=== PATIENT | female | born 1965 | race Caucasian/White ===

== ENCOUNTER 2017-11-07 22:46 | Emergency (ER) | payer SELFPAY ==
[~2017-11-07] VITALS: Ht 172.7 cm; Wt 68.0 kg
[2017-11-07 22:57] VITALS: BP 123/81
== END 2017-11-07 23:22 | disposition home or self-care (01) ==
LOC: ER 22:50
DX: J06.9 Acute upper respiratory infection, unspecified (principal)
CPT/HCPCS: A4606; Z7502; Z7610

== ENCOUNTER 2018-01-10 20:03 | Emergency (ER) | payer OTHER ==
[~2018-01-10] VITALS: Ht 170.2 cm; Wt 68.0 kg
--- NOTE | 2018-01-10 21:28 | NUR ---
PATIENT TO ED DT "LT FACIAL SWELLING SINCE YESTERDAY; STARTED A PIMPLE, GETTING WORSE. PATIENT IS AFEBRILE. VSS
[2018-01-10] MEDS ORDERED: IBUPROFEN 600 MG TABLET PO ONE (22:05)
[2018-01-10] MEDS: IBUPROFEN 600 MG TABLET PO ONE (22:08)
[2018-01-10 22:09] VITALS: BP 124/80
== END 2018-01-10 22:09 | disposition home or self-care (01) ==
LOC: ER 20:07
DX: L02.01 Cutaneous abscess of face (principal)
CPT/HCPCS: A4606; Z7610

== ENCOUNTER 2018-11-19 14:05 | Inpatient (IN) | payer OTHER ==
[~2018-11-19] VITALS: Ht 170.2 cm; Wt 77.6 kg
--- NOTE | 2018-11-19 14:05 | NUR ---
BIBRA [id number] from restaurant c/o left side body pain (hip, leg, shoulder arm) and mid lower back s/p slipped and fell, -ko, TO ER BED 3, HOOKED TO MONITOR, CHANGED TO GOWN, AWAITING MD CALDERA
--- NOTE | 2018-11-19 14:55 | NUR ---
DR VALDIVIA AT BEDSIDE FOR EVAL.
[2018-11-19] MEDS ORDERED: MORPHINE SULFATE INJ 4 MG/ML DISP.SYRIN ONE (15:23)
[2018-11-19] MEDS ORDERED: ONDANSETRON 4 MG TAB.RAPDIS ONE (15:23)
[2018-11-19] MEDS ORDERED: MORPHINE SULFATE INJ 2 MG/ML DISP.SYRIN IM ONE (15:30)
[2018-11-19] MEDS ORDERED: ONDANSETRON 4 MG TAB.RAPDIS SL ONE (15:30)
--- NOTE | 2018-11-19 17:06 | NUR ---
PT IN BED AWAKE,VSS, HOOKED TO MONITOR, WILL CONTINUE TO MOITOR
[2018-11-19 18:08] LABS: BASOPHILS % (AUTO) 0.5 % (0.0-2.0); EOSINOPHILS % (AUTO) 0.5 % (0.0-6.0); HEMATOCRIT 37 % (33-45); HEMOGLOBIN 12.3 g/dL (11.5-14.8); LYMPHOCYTES # (AUTO) 1.8 /CMM (0.8-4.8); LYMPHOCYTES % (AUTO) 30.8 % (20.0-44.0); MEAN CORPUSCULAR HGB CONC 33 g/dl (31.0-36.0); MEAN CORPUSCULAR VOLUME 88 fL (82-100); MONOCYTES # (AUTO) 0.3 /CMM (0.1-1.30); MONOCYTES % (AUTO) 4.8 % (2.0-12.0); NEUTROPHILS # (AUTO) 3.7 /CMM (1.8-8.9); NEUTROPHILS % (AUTO) 63.4 % (43.0-81.0); PLATELET COUNT (AUTO) 221 /CMM (150-450); RED BLOOD CELL COUNT(AUTO) 4.22 MIL/uL (4.0-5.2); WHITE BLOOD COUNT (AUTO) 5.9 K/uL (4.3-11.0)
[2018-11-19 18:16] LABS: CALCIUM, SERUM 9.1 mg/dL (8.5-10.1); CREATININE 0.8 mg/dL (0.6-1.3); POTASSIUM 3.4 mmol/L (3.5-5.1)
[2018-11-19 18:22] LABS: ALBUMIN 3.8 g/dL (3.4-5.0); BILIRUBIN,DIRECT 0.1 mg/dL (0.0-0.2); BILIRUBIN,TOTAL 0.4 mg/dL (0.2-1.0); TOTAL PROTEIN, SERUM 7.3 g/dL (6.4-8.2)
--- NOTE | 2018-11-19 19:06 | NUR ---
PT IN BED AWAKE,VSS, HOOKED TO MONITOR, WILL CONTINUE TO MONITOR
--- NOTE | 2018-11-19 19:25 | NUR ---
Elizabeth drake in ED - 11/19/18 at 1927 by BRAN Patient discharged to home in stable condition. Written and verbal after care instructions given. Patient verbalizes understanding of instruction.
--- NOTE | 2018-11-19 19:25 | NUR ---
Note noelle in EDM - 11/19/18 at 1927 by BRAN IV removed. Catheter intact and site benign. Pressure and 4x4 applied to site. No bleeding noted.
--- NOTE | 2018-11-19 19:35 | NUR ---
REPORT GIVEN TO KIM VELASCO FOR NOAH
--- NOTE | 2018-11-19 20:00 | NUR ---
[facility] PAGED
--- NOTE | 2018-11-19 20:03 | NUR ---
AFTER HOURS CALL [phone] ITS FERMÍN BAGLEY
[2018-11-19] MEDS ORDERED: KETOROLAC TROMETHAMINE INJ 30 MG/ML VIAL IV ONE (20:30)
--- NOTE | 2018-11-19 20:50 | NUR ---
REPORT GIVEN TO LOGAN VELASCO.
[2018-11-19] MEDS ORDERED: KETOROLAC TROMETHAMINE INJ 30 MG/ML VIAL ONE (20:51)
[2018-11-19 21:30] VITALS: BP 126/73
--- NOTE | 2018-11-19 21:30 | NUR ---
RECEIVED PATIENT FROM ER FOR DX MECHANICAL FALL/ INABILITY TO WALK. AO X 3, ABLE TO MAKE NEEDS KNOWN. NO ACUTE DISTRESS NOTED. MONITORED FOR PAIN. SKIN ASSESSMENT DONE. IV SITE PATENT, INTACT; FLUSHED. SAFETY REMINDERS GIVEN. ON LOW BED WITH BILATERAL UPPER SIDE RAILS UP. CALL CARVAJAL WITHIN EASY REACH. FRIEND AT BEDSIDE. WILL CONTINUE TO MONITOR.
[2018-11-19] MEDS ORDERED: IV NS 0.9% 1,000 ML IV PRN (21:47)
[2018-11-19 22:00] VITALS: BP 126/73
[2018-11-19] MEDS ORDERED: ACETAMINOPHEN 325 MG TABLET PO PRN (22:00)
[2018-11-19] MEDS ORDERED: ONDANSETRON HCL/PF 4 MG/2 ML VIAL IVP PRN (22:00)
[2018-11-19] MEDS ORDERED: MAG HYDROX/AL HYDROX/SIMETH 30 ML UDC PO PRN (22:00)
[2018-11-19] MEDS ORDERED: HYDROCODONE/APAP 5/325MG 1 EACH TABLET PO PRN (22:00)
[2018-11-19] MEDS ORDERED: HYDROCODONE/APAP 10/325MG 1 EA TABLET PO PRN (22:00)
[2018-11-19] MEDS ORDERED: Z GUARD REMEDY 2 OZ OINT TP PRN (22:00)
[2018-11-19] MEDS ORDERED: MAGNESIUM HYDROXIDE 30 ML UDC PO PRN (22:00)
[2018-11-19] MEDS ORDERED: ENOXAPARIN SODIUM 40 MG/0.4 ML DISP.SYRIN SQ ONE (23:30)
--- NOTE | 2018-11-20 06:00 | NUR ---
PATIENT ASLEEP, EASILY AROUSABLE. RESPIRATIONS EVEN. NO SIGNS OF PAIN NOTED. IVF INFUSING ORDERED. NEEDS ATTENDED. SAFETY PRECAUTIONS AND COMFORT MEASURES IN PLACE. WILL GIVE REPORT TO DAY SHIFT FOR CONTINUITY OF CARE.
[2018-11-20 06:31] LABS: BASOPHILS % (AUTO) 0.4 % (0.0-2.0); EOSINOPHILS % (AUTO) 1.7 % (0.0-6.0); HEMATOCRIT 36 % (33-45); HEMOGLOBIN 11.9 g/dL (11.5-14.8); LYMPHOCYTES % (AUTO) 38.8 % (20.0-44.0); MEAN CORPUSCULAR HGB CONC 33 g/dl (31.0-36.0); MEAN CORPUSCULAR VOLUME 88 fL (82-100); MONOCYTES # (AUTO) 0.3 /CMM (0.1-1.30); MONOCYTES % (AUTO) 6.8 % (2.0-12.0); NEUTROPHILS # (AUTO) 2.7 /CMM (1.8-8.9); NEUTROPHILS % (AUTO) 52.3 % (43.0-81.0); PLATELET COUNT (AUTO) 220 /CMM (150-450); RED BLOOD CELL COUNT(AUTO) 4.07 MIL/uL (4.0-5.2); WHITE BLOOD COUNT (AUTO) 5.1 K/uL (4.3-11.0)
[2018-11-20 06:45] LABS: CALCIUM, SERUM 8.8 mg/dL (8.5-10.1); CREATININE 0.9 mg/dL (0.6-1.3); MAGNESIUM 2.2 mg/dL (1.8-2.4); PHOSPHORUS 6.4 mg/dL (2.5-4.9); POTASSIUM 4.2 mmol/L (3.5-5.1)
[2018-11-20 06:50] LABS: THYROID STIMULATING HORMONE 3.006 uIU/mL (0.358-3.74)
[2018-11-20] MEDS ORDERED: PANTOPRAZOLE 40 MG TABLET.DR PO SCH (07:30)
[2018-11-20 08:00] VITALS: BP 95/59
--- NOTE | 2018-11-20 08:00 | NUR ---
m/s refractory technician: initial assessment received pt in bed awake, a/xo4. pt somewhat anxious on discomfort to body including breast pain, but pt refused pain med when offered. instructed to call for assistance. will monitor.
--- NOTE | 2018-11-20 11:00 | NUR ---
m/s real estate consultant: md visit seen and examined by dr. juarez. also made aware re: ortho P.A. recommendation for toradol 15mg ivp q8hrx3 doses only[address] juarez aware that pt refusing medications when offered. received verbal orders for xanax 0.5mg po q12 hours and toradol 15mg ivp [id number]. orders read back and carried out and acknowledged. pt may refused these meds, but still offer the meds per md. pt made aware, but will not take meds, but meds are available if needed. medications teaching provided prn. instructed to call for assistance. will monitor.
[2018-11-20] MEDS ORDERED: ALPRAZOLAM 0.25 MG TABLET PO SCH (11:30)
--- NOTE | 2018-11-20 12:00 | NUR ---
m/s unloading checker: notes offered xanax medication, but pt still refuses, stated, "i don't need medication." instructed to call for assistance. will continue to monitor.
[2018-11-20 12:38] LABS: APPEARANCE,URINE TURBID (CLEAR); BILIRUBIN,URINE 1+ (NEGATIVE); BLOOD, URINE NEGATIVE Ery/uL (NEGATIVE); KETONES,URINE TRACE (NEGATIVE); LEUKOCYTE ESTERASE ,URINE NEGATIVE (NEGATIVE); NITRITE, URINE NEGATIVE (NEGATIVE); PH,URINE 5.5 (5.0-8.0); PROTEIN,URINE TRACE mg/dl (NEGATIVE); UGLUCOSE NEGATIVE (NEGATIVE); UROBILINOGEN,URINE 0.2 EU/dL (0.2)
[2018-11-20 12:39] LABS: COLOR,URINE DARK YELLOW (YELLOW)
[2018-11-20 12:42] LABS: BACTERIA,URINE Few /HPF (None Seen); MUCUS,URINE Few /LPF (None Seen); RBC,URINE 0-2 /HPF (0-2); SQUAMOUS EPITHELIAL CELL,UR Rare /HPF (None Seen); WBC,URINE 0-2 /HPF (0-3)
[2018-11-20 12:43] LABS: URINE AMORPHOUS URATE Many /HPF (None Seen)
[2018-11-20] MEDS ORDERED: KETOROLAC TROMETHAMINE INJ 30 MG/ML VIAL IV SCH (13:00)
--- NOTE | 2018-11-20 13:00 | NUR ---
m/s solar systems designer: notes pt refused toradol despite educated on medication.
--- NOTE | 2018-11-20 14:00 | NUR ---
m/s assistant chief engineer: notes pt verbalizing wanting to go home and still refuses pain medication when offered.
--- NOTE | 2018-11-20 15:00 | NUR ---
m/s industrial robotics mechanic: notes friend came up to the nurses station and wants pt to get discharge, stated, "we have an appointment at [facility] today and would like her get discharge." also spoke to pt and wants to f/u with her doctor at [place]. dr. juarez notified and made aware and will discharge her today. pt made aware. h/l removed with tip intact. pt wants a walker to take home with physical therapist recommendation for home dme. central supply notified.
--- NOTE | 2018-11-20 15:20 | NUR ---
m/s deliverer pharmacy: notes discharged instructions given to pt and verbalized understanding. pt stated, "i will f/u with my own doctor today at [facility]."
--- NOTE | 2018-11-20 15:35 | NUR ---
m/s scroll machine operator: discharged discharged home via private car accompanied by friend with all d'c papers and valuables.
[2018-11-20] MEDS ORDERED: ENOXAPARIN SODIUM 40 MG/0.4 ML DISP.SYRIN SQ SCH (21:00)
== END 2018-11-20 15:45 | disposition home or self-care (01) | DRG 384 ==
LOC: ER 14:07 → MED 20:39
PROVIDERS: ADMIT Registered Nurse; ATTEND Internal Medicine
DX: S70.02XA Contusion of left hip, initial encounter (principal); S09.90XA Unspecified injury of head, initial encounter; J98.4 Other disorders of lung; E66.9 Obesity, unspecified; M75.32 Calcific tendinitis of left shoulder; W01.0XXA Fall on same level from slipping, tripping and stumbling without subsequent striking against object, initial encounter; Y92.511 Restaurant or cafe as the place of occurrence of the external cause; Z68.26 Body mass index [BMI] 26.0-26.9, adult; F41.9 Anxiety disorder, unspecified; T14.8XXA Other injury of unspecified body region, initial encounter; R26.2 Difficulty in walking, not elsewhere classified; S29.9XXA Unspecified injury of thorax, initial encounter
CPT/HCPCS: 36415; 70450-TC; 71046; 72125-TC; 73030-TC; 80048-TC; 80061-TC; 80076-TC; 81000-TC; 83735-TC; 84100-TC; 84443-TC; 85025-TC; 85730-TC; 87081-TC; G0378; J1885; J2270; J7030; L0172; Q0162

== ENCOUNTER 2020-05-01 01:19 | Emergency (ER) | payer OTHER ==
[~2020-05-01] VITALS: Ht 172.7 cm; Wt 74.8 kg
[2020-05-01 01:19] VITALS: BP 125/83
--- NOTE | 2020-05-01 01:50 | NUR ---
Patient discharged to home in stable condition. Written and verbal after care instructions given. Patient verbalizes understanding of instruction.
== END 2020-05-01 02:02 | disposition home or self-care (01) ==
LOC: ER 01:22
DX: R45.4 Irritability and anger (principal); R42 Dizziness and giddiness; R11.0 Nausea; I10 Essential (primary) hypertension

== ENCOUNTER 2021-05-14 23:38 | Emergency (ER) | payer OTHER ==
[~2021-05-14] VITALS: Ht 170.2 cm; Wt 78.5 kg
--- NOTE | 2021-05-15 01:15 | NUR ---
PRESENTED TO THE ER FOR C.O R KNEE PAIN AND SWELLING . - REDNESS. DENIED ANY TRAUMA OR INJURY. ASSISTED TO BED 9 ER, VSS. WILL CONT TO MONITOR
[2021-05-15] MEDS ORDERED: IBUP-1957 PO (02:19)
--- NOTE | 2021-05-15 02:35 | NUR ---
Patient discharged to home in stable condition. Rx and Written and verbal after care instructions given. Patient verbalizes understanding of instruction.
[2021-05-15 02:43] VITALS: BP 129/77
== END 2021-05-15 02:43 | disposition home or self-care (01) ==
LOC: ER 23:45
DX: M25.461 Effusion, right knee (principal); M25.561 Pain in right knee; Z79.899 Other long term (current) drug therapy
CPT/HCPCS: 73564-TC; 93971-TC

== ENCOUNTER 2022-03-06 18:32 | Emergency (ER) | payer OTHER ==
[~2022-03-06] VITALS: Ht 172.7 cm; Wt 77.1 kg
[~2022-03-06 18:32] MED LIST: IBUP-1957 PO
--- NOTE | 2022-03-06 18:52 | NUR ---
URINE COLLECTED AND SENT TO LAB
--- NOTE | 2022-03-06 19:25 | NUR ---
RECEIVED PATIENT AWAKE, AAOX4. ON THE PHONE TALKING. PATIENT VITALS CHECKED. WILL FF MD'S ORDER
--- NOTE | 2022-03-06 19:30 | NUR ---
COVID SWAB, PCR AND INFLUENZA SWAB DONE AND SENT TO LAB
[2022-03-06] MEDS ORDERED: ACETAMINOPHEN ES 500 MG TABLET ONE (19:40)
[2022-03-06] MEDS: ACETAMINOPHEN 325 MG TABLET PO ONE (19:47)
--- NOTE | 2022-03-06 19:48 | NUR ---
MEDS FOR FEVER GIVEN
[2022-03-06 19:53] LABS: BILIRUBIN,URINE NEGATIVE (NEGATIVE); COLOR,URINE YELLOW (YELLOW); LEUKOCYTE ESTERASE ,URINE NEGATIVE (NEGATIVE); NITRITE, URINE NEGATIVE (NEGATIVE); PH,URINE 7.5 (5.0-8.0); PROTEIN,URINE NEGATIVE (NEGATIVE); UGLUCOSE NEGATIVE (NEGATIVE); UROBILINOGEN,URINE 0.2 EU/dL (0.2)
[2022-03-06 20:08] LABS: CALCIUM, SERUM 8.8 mg/dL (8.5-10.1); CREATININE 0.9 mg/dL (0.6-1.3); POTASSIUM 3.8 mmol/L (3.5-5.1)
[2022-03-06 20:27] LABS: BACTERIA,URINE Few /HPF (None Seen); MUCUS,URINE Moderate /LPF (None Seen); SQUAMOUS EPITHELIAL CELL,UR Few /HPF (None Seen); WBC,URINE 0-2 /HPF (0-3)
--- NOTE | 2022-03-06 20:39 | NUR ---
RECEIVED A CALL FROM LAB, PT IS (+) FOR COVID.
[2022-03-06 20:42] LABS: BASOPHILS % (AUTO) 0.2 % (0.0-2.0); EOSINOPHILS % (AUTO) 0.2 % (0.0-6.0); HEMATOCRIT 34 % (33-45); HEMOGLOBIN 11.3 g/dL (11.5-14.8); LYMPHOCYTES # (AUTO) 0.5 K/uL (0.8-4.8); MEAN CORPUSCULAR HGB CONC 34 g/dl (31.0-36.0); MEAN CORPUSCULAR VOLUME 84 fL (82-100); MONOCYTES # (AUTO) 0.4 K/uL (0.1-1.30); MONOCYTES % (AUTO) 7.5 % (2.0-12.0); NEUTROPHILS # (AUTO) 4.4 K/uL (1.8-8.9); NEUTROPHILS % (AUTO) 83.1 % (43.0-81.0); PLATELET COUNT (AUTO) 180 K/uL (150-450); RED BLOOD CELL COUNT(AUTO) 4.03 MIL/uL (4.0-5.2); WHITE BLOOD COUNT (AUTO) 5.3 K/uL (4.3-11.0)
--- NOTE | 2022-03-06 21:20 | NUR ---
Patient discharged to home in stable condition. Written and verbal after care instructions given. Patient verbalizes understanding of instruction.
[2022-03-06 21:23] VITALS: BP 113/65
== END 2022-03-06 21:23 | disposition home or self-care (01) ==
LOC: ER 18:36
DX: U07.1 COVID-19 (principal)
CPT/HCPCS: 36415; 71045; 80048; 81001; 85025; 87426; 87804; 99284; C9803 ×2; U0003

== ENCOUNTER 2022-04-15 11:28 | Emergency (ER) | payer OTHER ==
[~2022-04-15] VITALS: Ht 170.2 cm; Wt 77.1 kg
--- NOTE | 2022-04-15 11:45 | NUR ---
RECIVED PT 57 YRS FEMALE C/O LACERATION ON RT HAND CUT BY BROKEN GLASSE OPEN SKIN WITH MILD ACTIVE BLEEDING
[2022-04-15] MEDS ORDERED: TDAP [DIPH/PERTUSSIS/TET] 0.5 ML VIAL IM ONE ×2 (12:00→12:02)
[2022-04-15] MEDS ORDERED: BACI/NEOM/POLY B OINT PKT 1 UDPKT PACKET TP ONE (12:00)
[2022-04-15] MEDS ORDERED: LIDOCAINE 1%-EPI 1:100,000 50 ML VIAL IJ ONE (12:00)
--- NOTE | 2022-04-15 12:00 | NUR ---
CLEAN AND IRREGATED WOUND DONE BY EDT
[2022-04-15] MEDS ORDERED: BACI/NEOM/POLY B OINT PKT 1 UDPKT PACKET ONE (12:02)
[2022-04-15] MEDS ORDERED: LIDOCAINE 1%-EPI 1:100,000 20 ML VIAL ONE (12:02)
[2022-04-15] MEDS ORDERED: ACETAMINOPHEN 325 MG TABLET PO ONE (12:30)
[2022-04-15] MEDS ORDERED: ACETAMINOPHEN 325 MG TABLET ONE (12:37)
--- NOTE | 2022-04-15 13:40 | NUR ---
SUTURE DONE AT BED SIDE BY DR. JORGENSEN
--- NOTE | 2022-04-15 14:30 | NUR ---
dressing appled on rt hand
[2022-04-15] MEDS ORDERED: IBUP-1955 PO (14:39)
--- NOTE | 2022-04-15 14:43 | NUR ---
D/C INSTRACTION GIVEN TO PT FULLY AND VERBLIZED UNDERSTOOD D/C HOME WITH RX
[2022-04-15 14:45] VITALS: BP 118/69
== END 2022-04-15 14:48 | disposition home or self-care (01) ==
LOC: ER 11:31
DX: S61.412A Laceration without foreign body of left hand, initial encounter (principal); W25.XXXA Contact with sharp glass, initial encounter; Y93.G1 Activity, food preparation and clean up; Y92.89 Other specified places as the place of occurrence of the external cause; Y99.8 Other external cause status
CPT/HCPCS: 99285; 12002; 90471; 90715; J3490 ×2

== ENCOUNTER 2023-02-06 12:47 | Emergency (ER) | payer OTHER ==
[~2023-02-06] VITALS: Ht 170.2 cm; Wt 77.1 kg
[~2023-02-06 12:47] MED LIST changes: +IBUP-1955 PO
[2023-02-06] MEDS ORDERED: IBUP-1955 PO (12:58)
[2023-02-06] MEDS ORDERED: AMOX-430 PO (12:58)
--- NOTE | 2023-02-06 13:17 | NUR ---
strep swab collected and sent to lab
[2023-02-06] MEDS ORDERED: DEXAMETHASONE SOD PHOSPHATE 10 MG/ML VIAL ONE (13:24)
[2023-02-06] MEDS ORDERED: KETOROLAC TROMETHAMINE 15 MG/ML VIAL ONE (13:24)
[2023-02-06] MEDS ORDERED: KETOROLAC TROMETHAMINE INJ 30 MG/ML VIAL IM ONE (13:30)
[2023-02-06] MEDS ORDERED: DEXAMETHASONE SOD PHOSPHATE 10 MG/ML VIAL IM ONE (13:30)
[2023-02-06 14:13] VITALS: BP 100/61
== END 2023-02-06 14:13 | disposition home or self-care (01) ==
LOC: ER 12:49
DX: J02.9 Acute pharyngitis, unspecified (principal); Z79.899 Other long term (current) drug therapy
CPT/HCPCS: 99284; 96372 ×2; 87880; J1100; J1885; 86403-TC

== ENCOUNTER 2023-05-26 08:43 | Emergency (ER) | payer OTHER ==
[~2023-05-26] VITALS: Ht 167.6 cm; Wt 77.1 kg
[~2023-05-26 08:43] MED LIST changes: +AMOX-430 PO
[2023-05-26 08:55] VITALS: BP 111/59; TEMP 98.6; O2SAT 100
[2023-05-26 09:11] LABS: ADD URINE CULTURE YES; APPEARANCE,URINE CLEAR (CLEAR); BACTERIA,URINE Rare /HPF (None Seen); BILIRUBIN,URINE NEGATIVE (NEGATIVE); BLOOD, URINE 2+ Ery/uL (NEGATIVE); COLOR,URINE YELLOW (YELLOW); KETONES,URINE NEGATIVE (NEGATIVE); LEUKOCYTE ESTERASE ,URINE 1+ (NEGATIVE); NITRITE, URINE NEGATIVE (NEGATIVE); PH,URINE 5.5 (5.0-8.0); PROTEIN,URINE NEGATIVE (NEGATIVE); SQUAMOUS EPITHELIAL CELL,UR Rare /HPF (None Seen); UGLUCOSE NEGATIVE (NEGATIVE); UROBILINOGEN,URINE 0.2 EU/dL (0.2)
== END 2023-05-26 11:59 | disposition home or self-care (01) ==
LOC: ER 08:51
DX: N89.8 Other specified noninflammatory disorders of vagina (principal)
CPT/HCPCS: 99283; 87086; 81001; 87210; A4223

== ENCOUNTER 2023-11-16 22:04 | Emergency (ER) | payer OTHER ==
[~2023-11-16] VITALS: Ht 170.2 cm; Wt 77.1 kg
[2023-11-16 22:43] VITALS: BP 136/88; TEMP 98.2
[2023-11-16] MEDS: BENZONATATE 100 MG CAPSULE PO PRN (23:07)
[2023-11-16] MEDS ORDERED: BENZONATATE 100 MG CAPSULE PO ONE (23:07)
[2023-11-17] MEDS ORDERED: ALBU18HF2 INH (00:20)
[2023-11-17 00:39] VITALS: O2SAT 98
== END 2023-11-17 01:26 | disposition home or self-care (01) ==
LOC: ER 22:05
DX: R05.9 Cough, unspecified (principal); Z90.89 Acquired absence of other organs
CPT/HCPCS: 71045-TC

== ENCOUNTER 2025-04-13 06:13 | Emergency (ER) | payer OTHER ==
[~2025-04-13] VITALS: Ht 172.7 cm; Wt 78.0 kg
[~2025-04-13 06:13] MED LIST changes: +ALBU18HF2 INH
[2025-04-13] MEDS ORDERED: LIDOCAINE VISCOUS 2% UD 15 ML UDC ONE (06:58)
[2025-04-13] MEDS ORDERED: MAG HYDROX/AL HYDROX/SIMETH 30 ML UDC ONE (06:58)
[2025-04-13] MEDS ORDERED: FAMOTIDINE/PF INJ 20 MG/2 ML VIAL IV ONE (06:59)
[2025-04-13 07:04] LABS: PLATELET COUNT (AUTO) 233 K/uL (150-450); RED BLOOD CELL COUNT(AUTO) 4.42 MIL/uL (4.0-5.2); RED CELL DISTRIBUTION WIDTH 14.0 % (11.5-15.0); WHITE BLOOD COUNT (AUTO) 5.1 K/uL (4.3-11.0)
[2025-04-13] MEDS: MAG HYDROX/AL HYDROX/SIMETH 30 ML UDC PO ONE (07:12)
[2025-04-13] MEDS: IV NS 0.9% 1,000 ML BAG IV ONE (07:12)
[2025-04-13] MEDS: FAMOTIDINE/PF INJ 20 MG/2 ML VIAL IV ONE (07:12)
[2025-04-13] MEDS: LIDOCAINE VISCOUS 2% UD 15 ML UDC MM ONE (07:12)
[2025-04-13 07:15] LABS: CALCIUM, SERUM 9.3 mg/dL (8.5-10.1); CREATININE 0.8 mg/dL (0.6-1.3); SODIUM SERUM 140.0 mmol/L (136-145); UREA NITROGEN, BLOOD 17.0 mg/dL (7-18)
[2025-04-13 07:18] LABS: ASPARTATE AMINOTRANSFERASE 20.0 U/L (15-37); TOTAL PROTEIN, SERUM 7.5 g/dL (6.4-8.2)
[2025-04-13] MEDS ORDERED: ONDA4TAB5 PO (08:57)
[2025-04-13] MEDS ORDERED: FAMO-131 PO (08:57)
[2025-04-13 09:15] LABS: APPEARANCE,URINE CLEAR (CLEAR); BLOOD, URINE 2+ Ery/uL (NEGATIVE); LEUKOCYTE ESTERASE ,URINE 2+ (NEGATIVE); NITRITE, URINE NEGATIVE (NEGATIVE); UGLUCOSE NEGATIVE (NEGATIVE)
[2025-04-13 09:20] VITALS: BP 122/75; TEMP 97.8; O2SAT 98
[2025-04-13 09:26] LABS: ADD URINE CULTURE YES
== END 2025-04-13 09:20 | disposition home or self-care (01) ==
LOC: ER 06:18
DX: R10.13 Epigastric pain (principal); Z79.1 Long term (current) use of non-steroidal anti-inflammatories (NSAID); Z87.19 Personal history of other diseases of the digestive system; Z90.49 Acquired absence of other specified parts of digestive tract; Z79.899 Other long term (current) drug therapy
CPT/HCPCS: 99285; 74176; 96374; 96361; 85025; 80048; 87086; 83690; 80076; 81001; 36415; J1308